=== PATIENT | female | born 1990 | race American Indian/Alaskan Native ===

== ENCOUNTER 2016-10-22 19:31 | Emergency (ER) | payer OTHER ==
[2016-10-22 20:14] VITALS: BP 133/98
[2016-10-22 20:51] LABS: Alanine Aminotransferase 19 units/L (7-56); Albumin 4.6 g/dL (3.9-5); Albumin/Globulin Ratio 1.5 %; Alkaline Phosphatase 54 units/L (35-129); Anion Gap 22 mmol/L; BUN/Creatinine Ratio 8.33; Blood Urea Nitrogen 5 mg/dL (7-17); Carbon Dioxide 21 mmol/L (22-30); Chloride 98.9 mmol/L (98-107); Glucose 124 mg/dL (65-100); Lipase 17 units/L (13-60); Potassium 3.7 mmol/L (3.6-5.0); Sodium 138 mmol/L (137-145); Total Protein 7.7 g/dL (6.3-8.2)
[2016-10-22 20:52] LABS: Bacteria,Urine 2+ /HPF (Negative); Bilirubin,Urine NEG (Negative); Blood,Urine MOD (Negative); Ketones,Urine NEG (Negative); Leukocyte Esterase,Urine TR (Negative); Mucus,Urine 2+ /HPF; Nitrite,Urine POS (Negative); Protein,Urine <15 mg/dL mg/dL (Negative); Urobilinogen,Urine < 2.0 mg/dL (<2.0)
[2016-10-22 20:58] LABS: Basophils % (Auto) 0.6 % (0.0-1.8); Eosinophils % (Auto) 0.4 % (0.0-4.3); Hematocrit 39.4 % (30.3-42.9); Hemoglobin 13.5 gm/dl (10.1-14.3); Mean Corpuscular HGB Conc 34 % (30-34); Mean Corpuscular Volume 76 fl (79-97); Platelet Count 340 K/mm3 (140-440); Red Blood Count 5.21 M/mm3 (3.65-5.03); Red Cell Distribution Width 14.5 % (13.2-15.2); White Blood Count 11.4 K/mm3 (4.5-11.0)
[2016-10-22 20:59] LABS: Mean Corpuscular Hemoglobin 26 pg (28-32)
== END 2016-10-22 21:45 | disposition left against medical advice (07) ==
LOC: ED 19:31
DX: R10.2 Pelvic and perineal pain (principal); R10.30 Lower abdominal pain, unspecified; Z53.21 Procedure and treatment not carried out due to patient leaving prior to being seen by health care provider
CPT/HCPCS: 36415; 80053; 81001; 81025; 83690; 85025

== ENCOUNTER 2017-07-07 19:24 | Emergency (ER) | payer SELFPAY ==
[2017-07-07 20:09] VITALS: BP 146/61
[2017-07-07 20:48] LABS: Basophils % (Auto) 0.3 % (0.0-1.8); Eosinophils # (Auto) 0.2 K/mm3 (0.0-0.4); Eosinophils % (Auto) 1.3 % (0.0-4.3); Hematocrit 37.5 % (30.3-42.9); Hemoglobin 12.2 gm/dl (10.1-14.3); Lymphocytes # (Auto) 4.3 K/mm3 (1.2-5.4); Lymphocytes % (Auto) 35.5 % (13.4-35.0); Mean Corpuscular HGB Conc 33 % (30-34); Mean Corpuscular Volume 76 fl (79-97); Monocytes # (Auto) 0.9 K/mm3 (0.0-0.8); Monocytes % (Auto) 7.4 % (0.0-7.3); Platelet Count 362 K/mm3 (140-440); Red Blood Count 4.91 M/mm3 (3.65-5.03); Red Cell Distribution Width 14.9 % (13.2-15.2)
[2017-07-07 21:00] LABS: Alanine Aminotransferase 27 units/L (7-56); Albumin 4.2 g/dL (3.9-5); BUN/Creatinine Ratio 12; Blood Urea Nitrogen 6 mg/dL (7-17); Calcium 8.6 mg/dL (8.4-10.2); Hemolysis Index 2
[2017-07-07 21:07] LABS: Bacteria,Urine 2+ /HPF (Negative); Bilirubin,Urine NEG (Negative); Blood,Urine MOD (Negative); Color,Urine Yellow (Yellow); Nitrite,Urine NEG (Negative); Protein,Urine <15 mg/dL mg/dL (Negative)
[2017-07-07 21:11] LABS: Mean Corpuscular Hemoglobin 25 pg (28-32)
== END 2017-07-07 22:50 | disposition left against medical advice (07) ==
LOC: ED 19:24
DX: R07.9 Chest pain, unspecified (principal); Z53.21 Procedure and treatment not carried out due to patient leaving prior to being seen by health care provider
CPT/HCPCS: 36415; 80053; 81001; 84702; 85025

== ENCOUNTER 2017-09-28 10:07 | Outpatient (CLI) | payer BC, MEDICAID ==
[2017-09-28 10:36] VITALS: BP 131/76
[2017-09-28 11:13] LABS: Bacteria,Urine 1+ /HPF (Negative); Bilirubin,Urine NEG (Negative); Blood,Urine NEG (Negative); Color,Urine Yellow (Yellow); Mucus,Urine FEW /HPF; Protein,Urine <15 mg/dL mg/dL (Negative)
== END 2017-09-28 11:10 | disposition home or self-care (01) ==
LOC: TRG 10:07
PROVIDERS: ATTEND Obstetrics & Gynecology
DX: O47.02 False labor before 37 completed weeks of gestation, second trimester (principal); Z3A.20 20 weeks gestation of pregnancy
CPT/HCPCS: 59025; 81001

== ENCOUNTER 2018-02-05 17:00 | Inpatient (IN) | payer MEDICAID ==
[2018-02-05 18:28] LABS: Hemoglobin 10.8 gm/dl (10.1-14.3); Mean Corpuscular HGB Conc 34 % (30-34); Mean Corpuscular Hemoglobin 24 pg (28-32); Mean Corpuscular Volume 70 fl (79-97); Platelet Count 274 K/mm3 (140-440); Red Blood Count 4.58 M/mm3 (3.65-5.03); Red Cell Distribution Width 18.6 % (13.2-15.2)
[2018-02-05 18:32] LABS: Bacteria,Urine 3+ /HPF (Negative); Bilirubin,Urine NEG (Negative); Blood,Urine SM (Negative); Color,Urine Yellow (Yellow); Mucus,Urine FEW /HPF
[2018-02-05 18:46] LABS: Alanine Aminotransferase 7 units/L (7-56); Uric Acid 2.8 mg/dL (3.5-7.6)
--- NOTE | 2018-02-05 20:15 | History and Physical Report ---
History of Present Illness Date of examination: 02/05/18 Date of admission: 02/05/18 Chief complaint: sent from the office History of present illness: Pt seen in the office today for routine visit andNST due to GDM on insulin. She was noted to have elevated bps of 150-160s/100s. Pt was seen in triage and had negative PIH labs but had 30 of protein in UA and two BPs that were 140-150/ 80s. Pt admitted for obs and 24 hour urine collection to r/o Pre E and have extended monitor to determine if she has gestational hypertension. Pt now states that contractions are more frequent and uncomfortable. Cx in the office was 2/50/-2. She was advised that if she continues to labor, she would deliver at this time. She was also advised that if 24hr protein is in the pre E range and she continues to have elevated blood pressures she will be induced at 37 weeks for pre E. I also explained to pt and her mother that if her urine protein is normal but her blood pressures remain elevated and reach the sever ranges of 160s/105 or higher she would also be induced for gestational hypertension. Pt is followed by GDM and will be on sliding scale while inhouse. Pt will get sono to check growth at this time as she states the baby was 7lbs at last sono done at 35 weeks. Remote access to my office is not available to me at this time therefore I am not able to confirm this. Plan of care d/w pt and mother. Several minutes were spent at the bedside and all questions were addressed and answered. Past History Past Medical History: other Past Surgical History: no surgical history [facility] History: denies: abnormal PAP smear Family/Genetic History: none Social history: no significant social history, single - Obstetrical History Expected Date of Delivery: 02/27/18 Actual Gestation: 36 Week(s) 6 Day(s) : 3 Para: 1 Hx # Term Pregnancies: 1 (spontaneous labor at 37 wks 8lbs) Number of Living Children: 1 Medications and Allergies Allergies Allergy/AdvReac Type Severity Reaction Status Date / Time No Known Allergies Allergy Verified 02/05/18 17:42 Home Medications Medication Instructions Recorded Confirmed Last Taken Type Insulin NPH Human Isophane 20 units SQ QPM 02/05/18 02/05/18 02/04/18 18:00 History [Humulin N] 1 Insulin NPH Human Isophane 54 units SQ QAM 02/05/18 02/05/18 01/29/18 07:00 History [Humulin N] Insulin Regular, Human [Humulin R] 20 units SQ QPM 02/05/18 02/05/18 02/04/18 17 :00 History 1 Insulin Regular, Human [Humulin R] 26 units SQ QAM 02/05/18 02/05/18 02/05/18 07 :00 History 1 Review of Systems All systems: negative - Vital Signs Vital signs: Vital Signs Pulse BP 99 H 133/74 02/05/18 17:31 02/05/18 17:31 Temp Pulse Resp BP Pulse Ox 97.2 F L 107 H 133/68 02/05/18 18:28 02/05/18 19:01 02/05/18 19:01 - Physical Exam Cardiovascular: Normal S1, Normal S2 Lungs: Positive: Clear to auscultation, Normal air movement Abdomen: Positive: normal appearance, soft, normal bowel sounds. Negative: distention, tenderness Vagina: Positive: normal moisture Deep Tendon Reflex Grade: Normal +2 - Obstetrical FHR: category 1 (occasional variables were noted on nst in office and while pt was in triage) Cervical Dilatation: 2 Cervical Effacement Percentage: 50 station: -2 Results Result Diagrams: 02/05/18 17:00 02/05/18 17:00 Abnormal lab results 02/05/18 02/05/18 02/05/18 Range/Units 17:00 17:00 17:00 MCV 70 L (79-97) fl MCH 24 L (28-32) pg RDW 18.6 H (13.2-15.2) % Creatinine 0.4 L (0.7-1.2) mg/dL Uric Acid 2.8 L (3.5-7.6) mg/dL Lactate Dehydrogenase 223 H (91-180) units/L Urine WBC (Auto) 8.0 H (0.0-6.0) /HPF All other labs normal. Assessment and Plan - Patient Problems (1) 36 weeks gestation of Current Visit: Yes Status: Acute (2) Elevated blood pressure affecting in third trimester, antepartum Current Visit: Yes Status: Acute Plan to address problem: -24 hr urine collection -serial blood pressures -close observation -if bps stay elevated proceed with IOL at 37 wks and d/c urine collection -BP meds if needed -sono for EFW and TONI (3) Gestational diabetes mellitus (GDM) requiring insulin Current Visit: Yes Status: Acute Plan to address problem: -SSI while in house -accuchecks q AC and 2hr pp -GDM diet
[2018-02-05] MEDS ORDERED: AMBIEN PO PRN (20:24)
[2018-02-05] MEDS ORDERED: COLACE PO PRN (20:24)
[2018-02-05] MEDS ORDERED: TYLENOL PO PRN (20:24)
[2018-02-05] MEDS ORDERED: MYLICON PO PRN (20:24)
[2018-02-05] MEDS ORDERED: ZOFRAN IV PRN (20:24)
[2018-02-05] MEDS ORDERED: D50W (25GM) Syringe IV PRN (21:22)
--- NOTE | 2018-02-05 21:35 | Ultrasound Report ---
FINAL REPORT EXAM: US OB FOLLOW UP HISTORY: variable decels, elevated BP TECHNIQUE: Transabdominal sonography of the pelvis. PRIORS: None. FINDINGS: There is a single, live intrauterine in cephalic presentation. heart motion is detected and heart rate is 164 beats per minute. Placenta is located fundal and there is no evidence of previa. Cervical length 3.4 cm. Biometric data obtained and corresponds to an estimated gestational age of 36 weeks 4 days and an ultrasound estimated date of delivery of 01 March 2018 (it should be noted that an examination performed earlier in may yield more accurate dating). survey not performed. Amniotic fluid index is 12.7 cm. EFW: 2989g +/- 248g. AUA: 68%tile. BPD: 9.16 cm HC: 32.3 cm AC: 32.6 cm FL: 7.16 cm Remainder of the uterus and adnexa grossly unremarkable. IMPRESSION: 1. Single, live intrauterine .
[2018-02-06] MEDS ORDERED: HumuLIN R SUB-Q SCH ×2 (00:40→07:30)
[2018-02-06] MEDS ORDERED: SUBLIMAZE IV PRN (09:35)
[2018-02-06] MEDS ORDERED: BRETHINE SUB-Q PRN (09:35)
[2018-02-06] MEDS ORDERED: MINERAL OIL PO PRN (09:35)
--- NOTE | 2018-02-06 09:37 | Progress Note ---
Assessment and Plan - Patient Problems (1) 37 weeks gestation of Current Visit: Yes Status: Acute (2) Gestational hypertension Current Visit: Yes Status: Acute Qualifiers: Trimester: third trimester Qualified Code(s): O13.3 - Gestational [ -induced] hypertension without significant proteinuria, third trimester Plan to address problem: Elevated BP's at M on and in office on thursday, no significant proteinuria(blood on specimen). Will proceed with induction for gestational hypertension. Diagnosis explained, questions answered, she voiced undeerstandiong and agrees with plan of care. (3) Gestational diabetes mellitus (GDM) requiring insulin Current Visit: Yes Status: Acute Subjective - Subjective Date of service: 02/06/18 Principal diagnosis: IUP@37weeks; GHTN; GDM Patient reports: no new complaints Objective - Vital Signs Vital Signs: Vital Signs - 12hr 02/06/18 02/06/18 02/06/18 00:55 02:54 04:54 Temperature Pulse Rate 104 H 100 H 85 Respiratory Rate Blood Pressure 117/57 105/55 128/68 Blood Pressure [Left] O2 Sat by Pulse Oximetry 02/06/18 02/06/18 07:55 08:58 Temperature 96.9 F L Pulse Rate 75 80 Respiratory 20 Rate Blood Pressure 122/62 142/89 Blood Pressure 122/62 [Left] O2 Sat by Pulse 96 Oximetry - Exam Breasts: deferred Cardiovascular: Regular rate Lungs: Normal air movement Abdomen: Present: normal appearance, soft Vulva: both: normal Uterus: Present: fundal height above umbilicus FHR: category 1 Uterine Contraction Monitor Mode: External Cervical Dilatation: 2.5 Cervical Effacement Percentage: 50 station: -2 Uterine Contraction Pattern: Regular Extremities: edema (1+) Deep Tendon Reflex Grade: Normal +2 - Labs Labs: Abnormal Labs 02/05/18 02/05/18 02/05/18 17:00 17:00 17:00 MCV 70 L MCH 24 L RDW 18.6 H Creatinine 0.4 L POC Glucose Uric Acid 2.8 L Lactate Dehydrogenase 223 H Urine WBC (Auto) 8.0 H 02/05/18 02/06/18 23:15 00:17 MCV MCH RDW Creatinine POC Glucose 154 H 164 H Uric Acid Lactate Dehydrogenase Urine WBC (Auto) Laboratory Results - last 24 hr 09/02/05/18 02/05/18 17:00 17:00 17:00 WBC 9.6 RBC 4.58 Hgb 10.8 Hct 32.0 MCV 70 L MCH 24 L MCHC 34 RDW 18.6 H Plt Count 274 Creatinine 0.4 L Estimated GFR > 60 POC Glucose Uric Acid 2.8 L AST 23 ALT 7 Lactate Dehydrogenase 223 H Urine Color Yellow Urine Turbidity Slightly-cloudy Urine pH 6.0 Ur Specific [place] 1.019 Urine Protein 30 mg/dl Urine Glucose (UA) 50 Urine Ketones Tr Urine Blood Sm Urine Nitrite Neg Urine Bilirubin Neg Urine Urobilinogen 2.0 Ur Leukocyte Esterase Neg Urine WBC (Auto) 8.0 H Urine RBC (Auto) 5.0 U Epithel Cells (Auto) 4.0 Urine Bacteria (Auto) 3+ Urine Mucus Few Urine Yeast (Budding) 1+ 02/05/18 02/06/18 02/06/18 23:15 00:17 07:53 WBC RBC Hgb Hct MCV MCH MCHC RDW Plt Count Creatinine Estimated GFR POC Glucose 154 H 164 H 75 Uric Acid AST ALT Lactate Dehydrogenase Urine Color Urine Turbidity Urine pH Ur Specific [place] Urine Protein Urine Glucose (UA) Urine Ketones Urine Blood Urine Nitrite Urine Bilirubin Urine Urobilinogen Ur Leukocyte Esterase Urine WBC (Auto) Urine RBC (Auto) U Epithel Cells (Auto) Urine Bacteria (Auto) Urine Mucus Urine Yeast (Budding)
[2018-02-06] MEDS ORDERED: PITOCin/NS 30 UNIT/500ML 30 UNITS/500 ML BAG IV SCH (10:00)
[2018-02-06] MEDS ORDERED: PITOCin/NS 20 UNIT/1000ML DRIP 20 UNITS/1,000 ML BAG IV SCH ×2 (10:00→23:52)
[2018-02-06] MEDS ORDERED: PRENATAL VITAMIN PO SCH (10:00)
[2018-02-06] MEDS ORDERED: XYLOCAINE 2% INFILTRATI ONE (10:00)
[2018-02-06] MEDS: LACTATED RINGERS 1,000 ML IV SCH ×2 (10:27→18:13)
[2018-02-06 11:00] LABS: Hematocrit 31.1 % (30.3-42.9); Hemoglobin 10.6 gm/dl (10.1-14.3); Mean Corpuscular HGB Conc 34 % (30-34); Platelet Count 251 K/mm3 (140-440); Red Blood Count 4.46 M/mm3 (3.65-5.03); Red Cell Distribution Width 18.4 % (13.2-15.2)
[2018-02-06 11:23] LABS: Mean Corpuscular Hemoglobin 24 pg (28-32); Mean Corpuscular Volume 70 fl (79-97)
--- NOTE | 2018-02-06 17:49 | Progress Note ---
Assessment and Plan Continue induction - Patient Problems (1) 37 weeks gestation of Current Visit: Yes Status: Acute (2) Gestational hypertension Current Visit: Yes Status: Acute Qualifiers: Trimester: third trimester Qualified Code(s): O13.3 - Gestational [ -induced] hypertension without significant proteinuria, third trimester (3) Gestational diabetes mellitus (GDM) requiring insulin Current Visit: Yes Status: Acute Subjective - Subjective Date of service: 02/06/18 Principal diagnosis: IUP@37weeks; GHTN; GDM Patient reports: movement normal, no new complaints, no loss of fluid, no vaginal bleeding Objective - Vital Signs Vital Signs: Vital Signs - 12hr 02/06/18 02/06/18 02/06/18 07:55 08:58 10:27 Temperature 96.9 F L Pulse Rate 75 80 107 H Respiratory 20 Rate Blood Pressure 122/62 142/89 Blood Pressure 122/62 [Left] O2 Sat by Pulse 96 98 Oximetry 02/06/18 02/06/18 02/06/18 10:29 10:31 10:32 Temperature Pulse Rate 105 H 104 H 92 H Respiratory Rate Blood Pressure 135/72 Blood Pressure [Left] O2 Sat by Pulse 99 90 Oximetry 02/06/18 02/06/18 02/06/18 10:36 10:41 10:47 Temperature Pulse Rate 98 H 96 H 100 H Respiratory Rate Blood Pressure Blood Pressure [Left] O2 Sat by Pulse 98 98 97 Oximetry 02/06/18 02/06/18 02/06/18 10:51 10:55 10:56 Temperature Pulse Rate 97 H 102 H 106 H Respiratory Rate Blood Pressure 134/80 Blood Pressure [Left] O2 Sat by Pulse 98 94 Oximetry 02/06/18 02/06/18 02/06/18 10:57 11:02 11:07 Temperature Pulse Rate 99 H 99 H 111 H Respiratory Rate Blood Pressure Blood Pressure [Left] O2 Sat by Pulse 97 98 97 Oximetry 02/06/18 02/06/18 02/06/18 11:12 11:16 11:22 Temperature Pulse Rate 102 H 102 H 100 H Respiratory Rate Blood Pressure Blood Pressure [Left] O2 Sat by Pulse 97 97 98 Oximetry 02/06/18 02/06/18 02/06/18 11:27 11:31 11:37 Temperature Pulse Rate 100 H 101 H 101 H Respiratory Rate Blood Pressure Blood Pressure [Left] O2 Sat by Pulse 98 97 99 Oximetry 02/06/18 02/06/18 02/06/18 11:42 11:47 11:52 Temperature Pulse Rate 101 H 98 H 112 H Respiratory Rate Blood Pressure Blood Pressure [Left] O2 Sat by Pulse 97 98 99 Oximetry 02/06/18 02/06/18 02/06/18 11:57 12:01 12:07 Temperature Pulse Rate 98 H 100 H 100 H Respiratory Rate Blood Pressure Blood Pressure [Left] O2 Sat by Pulse 98 97 98 Oximetry 02/06/18 02/06/18 02/06/18 12:12 12:17 12:18 Temperature Pulse Rate 99 H 95 H 103 H Respiratory Rate Blood Pressure Blood Pressure [Left] O2 Sat by Pulse 96 95 93 Oximetry 02/06/18 02/06/18 02/06/18 12:29 12:30 12:35 Temperature Pulse Rate 80 90 Respiratory Rate Blood Pressure Blood Pressure [Left] O2 Sat by Pulse 44 L 98 97 Oximetry 02/06/18 02/06/18 02/06/18 12:40 12:45 12:48 Temperature Pulse Rate 93 H 98 H 90 Respiratory Rate Blood Pressure Blood Pressure [Left] O2 Sat by Pulse 98 98 88 Oximetry 02/06/18 02/06/18 02/06/18 12:49 12:55 12:56 Temperature Pulse Rate 89 90 90 Respiratory Rate Blood Pressure 129/70 Blood Pressure [Left] O2 Sat by Pulse 97 97 Oximetry 02/06/18 02/06/18 02/06/18 12:59 13:05 13:10 Temperature Pulse Rate 88 91 H 97 H Respiratory Rate Blood Pressure Blood Pressure [Left] O2 Sat by Pulse 97 97 96 Oximetry 02/06/18 02/06/18 02/06/18 13:15 13:20 13:25 Temperature Pulse Rate 95 H 88 92 H Respiratory Rate Blood Pressure Blood Pressure [Left] O2 Sat by Pulse 96 97 98 Oximetry 02/06/18 02/06/18 02/06/18 13:30 13:35 13:40 Temperature Pulse Rate 88 92 H 92 H Respiratory Rate Blood Pressure Blood Pressure [Left] O2 Sat by Pulse 98 97 98 Oximetry 02/06/18 02/06/18 02/06/18 13:45 13:49 13:55 Temperature Pulse Rate 90 90 92 H Respiratory Rate Blood Pressure Blood Pressure [Left] O2 Sat by Pulse 97 96 97 Oximetry 02/06/18 02/06/18 02/06/18 14:00 14:05 14:18 Temperature Pulse Rate 95 H 97 H 89 Respiratory Rate Blood Pressure Blood Pressure [Left] O2 Sat by Pulse 96 97 99 Oximetry 02/06/18 02/06/18 02/06/18 14:23 14:26 14:28 Temperature Pulse Rate 97 H 117 H 99 H Respiratory Rate Blood Pressure Blood Pressure [Left] O2 Sat by Pulse 100 77 L 96 Oximetry 02/06/18 02/06/18 02/06/18 14:33 14:38 14:43 Temperature Pulse Rate 91 H 93 H 97 H Respiratory Rate Blood Pressure Blood Pressure [Left] O2 Sat by Pulse 100 99 98 Oximetry 02/06/18 02/06/18 02/06/18 14:48 14:53 14:56 Temperature Pulse Rate 97 H 96 H 88 Respiratory Rate Blood Pressure 129/64 Blood Pressure [Left] O2 Sat by Pulse 98 98 Oximetry 02/06/18 02/06/18 02/06/18 14:58 15:03 15:08 Temperature Pulse Rate 100 H 98 H 90 Respiratory Rate Blood Pressure Blood Pressure [Left] O2 Sat by Pulse 99 99 99 Oximetry 02/06/18 02/06/18 02/06/18 15:13 15:18 15:23 Temperature Pulse Rate 93 H 95 H 97 H Respiratory Rate Blood Pressure Blood Pressure [Left] O2 Sat by Pulse 99 99 98 Oximetry 02/06/18 02/06/18 02/06/18 15:28 15:30 15:36 Temperature 97.0 F L Pulse Rate 97 H 95 H Respiratory 16 Rate Blood Pressure Blood Pressure [Left] O2 Sat by Pulse 99 0 L Oximetry 02/06/18 02/06/18 02/06/18 15:37 15:41 15:47 Temperature Pulse Rate 89 97 H 94 H Respiratory Rate Blood Pressure Blood Pressure [Left] O2 Sat by Pulse 96 98 97 Oximetry 02/06/18 02/06/18 02/06/18 15:52 15:57 16:00 Temperature Pulse Rate 94 H 101 H 90 Respiratory Rate Blood Pressure Blood Pressure [Left] O2 Sat by Pulse 97 97 92 Oximetry 02/06/18 02/06/18 02/06/18 16:02 16:07 16:12 Temperature Pulse Rate 99 H 101 H 98 H Respiratory Rate Blood Pressure Blood Pressure [Left] O2 Sat by Pulse 98 96 97 Oximetry 02/06/18 02/06/18 02/06/18 16:17 16:22 16:27 Temperature Pulse Rate 105 H 93 H 89 Respiratory Rate Blood Pressure Blood Pressure [Left] O2 Sat by Pulse 99 97 91 Oximetry 02/06/18 02/06/18 02/06/18 16:32 16:37 16:42 Temperature Pulse Rate 99 H 97 H 95 H Respiratory Rate Blood Pressure Blood Pressure [Left] O2 Sat by Pulse 96 97 95 Oximetry 02/06/18 02/06/18 02/06/18 16:47 16:52 16:57 Temperature Pulse Rate 86 91 H 101 H Respiratory Rate Blood Pressure Blood Pressure [Left] O2 Sat by Pulse 97 97 97 Oximetry 02/06/18 02/06/18 02/06/18 17:02 17:04 17:07 Temperature Pulse Rate 103 H 93 H 97 H Respiratory Rate Blood Pressure Blood Pressure [Left] O2 Sat by Pulse 97 94 97 Oximetry 02/06/18 02/06/18 02/06/18 17:12 17:17 17:22 Temperature Pulse Rate 88 96 H 96 H Respiratory Rate Blood Pressure Blood Pressure [Left] O2 Sat by Pulse 96 96 97 Oximetry 02/06/18 02/06/18 02/06/18 17:27 17:32 17:37 Temperature Pulse Rate 109 H 95 H 91 H Respiratory Rate Blood Pressure Blood Pressure [Left] O2 Sat by Pulse 98 98 98 Oximetry 02/06/18 02/06/18 17:38 17:42 Temperature Pulse Rate 85 96 H Respiratory Rate Blood Pressure 137/66 Blood Pressure [Left] O2 Sat by Pulse 97 Oximetry - Exam Breasts: deferred Lungs: Normal air movement Abdomen: Present: normal appearance. Absent: tenderness Vulva: both: normal Uterus: Present: fundal height above umbilicus FHR: category 1 Uterine Contraction Monitor Mode: Internal Cervical Dilatation: 2.5 (AROM copious clear, IUPC placed after verbal consent obtained. ) Cervical Effacement Percentage: 50 station: -2 Uterine Contraction Pattern: Irregular - Labs Labs: Abnormal Labs 02/05/18 02/05/18 02/05/18 17:00 17:00 17:00 MCV 70 L MCH 24 L RDW 18.6 H Creatinine 0.4 L POC Glucose Uric Acid 2.8 L Lactate Dehydrogenase 223 H Urine WBC (Auto) 8.0 H 02/05/18 02/06/18 02/06/18 23:15 00:17 10:38 MCV 70 L MCH 24 L RDW 18.4 H Creatinine POC Glucose 154 H 164 H Uric Acid Lactate Dehydrogenase Urine WBC (Auto) Laboratory Results - last 24 hr 02/05/18 02/05/18 02/05/18 17:00 17:00 17:00 WBC 9.6 RBC 4.58 Hgb 10.8 Hct 32.0 MCV 70 L MCH 24 L MCHC 34 RDW 18.6 H Plt Count 274 Creatinine 0.4 L Estimated GFR > 60 POC Glucose Uric Acid 2.8 L AST 23 ALT 7 Lactate Dehydrogenase 223 H Urine Color Yellow Urine Turbidity Slightly-cloudy Urine pH 6.0 Ur Specific [place] 1.019 Urine Protein 30 mg/dl Urine Glucose (UA) 50 Urine Ketones Tr Urine Blood Sm Urine Nitrite Neg Urine Bilirubin Neg Urine Urobilinogen 2.0 Ur Leukocyte Esterase Neg Urine WBC (Auto) 8.0 H Urine RBC (Auto) 5.0 U Epithel Cells (Auto) 4.0 Urine Bacteria (Auto) 3+ Urine Mucus Few Urine Yeast (Budding) 1+ RPR Blood Type Antibody Screen 02/05/18 02/06/18 02/06/18 23:15 00:17 07:53 WBC RBC Hgb Hct MCV MCH MCHC RDW Plt Count Creatinine Estimated GFR POC Glucose 154 H 164 H 75 Uric Acid AST ALT Lactate Dehydrogenase Urine Color Urine Turbidity Urine pH Ur Specific [place] Urine Protein Urine Glucose (UA) Urine Ketones Urine Blood Urine Nitrite Urine Bilirubin Urine Urobilinogen Ur Leukocyte Esterase Urine WBC (Auto) Urine RBC (Auto) U Epithel Cells (Auto) Urine Bacteria (Auto) Urine Mucus Urine Yeast (Budding) RPR Blood Type Antibody Screen 02/06/18 02/06/18 02/06/18 10:38 10:38 10:38 WBC 8.0 RBC 4.46 Hgb 10.6 Hct 31.1 MCV 70 L MCH 24 L MCHC 34 RDW 18.4 H Plt Count 251 Creatinine Estimated GFR POC Glucose Uric Acid AST ALT Lactate Dehydrogenase Urine Color Urine Turbidity Urine pH Ur Specific [place] Urine Protein Urine Glucose (UA) Urine Ketones Urine Blood Urine Nitrite Urine Bilirubin Urine Urobilinogen Ur Leukocyte Esterase Urine WBC (Auto) Urine RBC (Auto) U Epithel Cells (Auto) Urine Bacteria (Auto) Urine Mucus Urine Yeast (Budding) RPR Nonreactive Blood Type O POSITIVE Antibody Screen Negative
[2018-02-06] MEDS ORDERED: NARCAN 2 MG/2 ML IV PRN (19:53)
[2018-02-06] MEDS ORDERED: fentaNYL-BUPIV 2 MCG/ML-0.125% 200 MCG/100 ML BAG EPIDURAL SCH (20:00)
--- NOTE | 2018-02-06 20:19 | Anesthesia Consultation ---
Anesthesia Consult and Med Hx Date of service: 02/06/18 - Airway Anesthetic Teeth Evaluation: Good ROM Head & Neck: Adequate Mental/Hyoid Distance: Adequate Mallampati Class: Class II Intubation Access Assessment: Probably Good - Pulmonary Exam CTA: Yes - Cardiac Exam Cardiac Exam: RRR - Pre-Operative Health Status ASA Pre-Surgery Classification: ASA2 Proposed Anesthetic Plan: Epidural, Spinal - Pulmonary Hx Smoking: No Hx Asthma: No Hx Respiratory Symptoms: No SOB: No - Cardiovascular System Hx Hypertension: Yes (gHTN; neg pre-eclampsia labs) Hx Heart Attack/AMI: No - Central Nervous System Hx Seizures: No CVA: No Hx Back Pain: No - Endocrine Hx Renal Disease: No Hx Liver Disease: No Hx Insulin Dependent Diabetes: Yes (gDM) Hx Thyroid Disease: No
--- NOTE | 2018-02-06 21:43 | Procedure Note ---
OB Delivery Note - Delivery Date of Delivery: 02/06/18 ( male) [employer] Business Banking Officer: ALBINO PEREZ Estimated blood loss: 200cc - Vaginal Delivery presentation: vertex Delivery position: OP ( presentation, direct OP) Intrapartum events: gestational hypertension, extend. tachycardia (no maternal fever ) Delivery induction: oxytocin Delivery augmentation: rupture of membranes, pitocin Delivery monitor: external FHT, internal uterine Route of delivery: Delivery placenta: spontaneous Delivery cord: nuchal cord (tight Nuchal cord and body cord), 3 umbilical vessels Episiotomy: none Delivery laceration: none Anesthesia: epidural Delivery comments: Male del straight OP- presentation, nucal cord and body cord - somersaulted through. Cord clamped and cut - infant handed off to NICU and [facility]AB[facility]IST d /t tachycardia. Cord blood collected. Placenta del intact and complete. Pit to IVF. no lacerations to repair. EBL 200, 's weight 8#4oz, apgars 8/ 9. - A at 1 minute: 8 at 5 minutes: 9 Infant Gender: Male (8#4oz)
[2018-02-06] MEDS ORDERED: TYLENOL PO PRN (23:52)
[2018-02-06] MEDS ORDERED: TUCKS PAD TP PRN (23:52)
[2018-02-06] MEDS ORDERED: SODIUM CHLORIDE FLUSH SYRINGE 10 ML IV PRN (23:52)
[2018-02-06] MEDS ORDERED: MILK OF MAGNESIA PO PRN (23:52)
[2018-02-06] MEDS ORDERED: DERMOPLAST TP PRN (23:52)
[2018-02-06] MEDS ORDERED: DULCOLAX PR PRN (23:52)
[2018-02-06] MEDS ORDERED: LANSINOH TP PRN (23:52)
[2018-02-06] MEDS ORDERED: BENADRYL PO PRN (23:52)
[2018-02-06] MEDS ORDERED: NORCO 5/325 PO PRN (23:52)
[2018-02-06] MEDS ORDERED: PHENERGAN PO PRN (23:52)
[2018-02-07] MEDS: MOTRIN PO SCH ×4 (01:23→23:17)
[2018-02-07] MEDS ORDERED: PRENATAL VITAMIN PO SCH (10:00)
[2018-02-07] MEDS: FEOSOL PO SCH ×2 (10:26→21:12)
[2018-02-07 10:46] LABS: Hematocrit 30.7 % (30.3-42.9); Hemoglobin 10.3 gm/dl (10.1-14.3)
--- NOTE | 2018-02-07 12:12 | Progress Note ---
Assessment and Plan Patient doing well this morning w/o complaints. b/p's 120-140's/60-80's, H&H 10.3/30.7, fasting glucose 78 this morning. Lochia scant, fundus firm. Anticipate d/c home tomorrow. Continue pathway. - Patient Problems (1) Gestational diabetes mellitus (GDM) requiring insulin Current Visit: Yes Status: Acute (2) Gestational hypertension Current Visit: Yes Status: Acute Qualifiers: Trimester: third trimester Qualified Code(s): O13.3 - Gestational [ -induced] hypertension without significant proteinuria, third trimester (3) (normal spontaneous vaginal delivery) Current Visit: Yes Status: Acute Subjective - Subjective Date of service: 02/07/18 Principal diagnosis: day #1 s/p Patient reports: appetite normal, voiding normally, pain well controlled, ambulating normally, no dizzy ambulation, no nauseated : doing well, bottle feeding Objective - Vital Signs Latest vital signs: Vital Signs Temp Pulse Resp BP BP Pulse Ox 02/07/18 11:56 18 02/07/18 08:28 98.4 F 89 20 120/60 02/07/18 05:36 98.5 F 94 H 18 130/75 99 02/07/18 00:25 99.6 F 87 20 140/84 02/06/18 23:08 88 129/91 02/06/18 22:53 87 132/84 02/06/18 22:38 121 H 122/73 02/06/18 22:23 100 H 132/74 02/06/18 22:08 106 H 131/81 02/06/18 22:00 98.3 F 18 02/06/18 21:54 110 H 133/74 02/06/18 21:38 107 H 133/63 02/06/18 21:30 114 H 129/56 02/06/18 21:07 92 H 78 L 02/06/18 21:05 63 85 02/06/18 21:03 96 H 138/82 02/06/18 21:02 96 H 100 02/06/18 21:00 98.2 F 20 02/06/18 20:58 101 H 87 02/06/18 20:57 91 H 117/75 100 02/06/18 20:53 94 H 118/69 09/15/18 20:52 98 H 100 /15/18 20:47 88 100 /15/18 20:42 91 H 108/59 100 15/18 20:38 89 112/57 15/18 20:37 97 H 100 /15/18 20:33 90 111/56 15/18 20:32 88 100 15/18 20:28 94 H 108/55 15/18 20:27 97 H 100 15/18 20:23 90 105/54 15/18 20:22 98 H 100 15/18 20:21 98 H 105/55 15/18 20:18 90 109/58 15/18 20:17 93 H 100 1518 20:16 93 H 114/64 1518 20:14 93 H 124/70 15/18 20:12 98 H 124/71 100 15/18 20:10 95 H 122/74 1518 20:06 88 116/66 15/18 20:04 100 H 118/64 100 15/18 20:02 97 H 122/66 1518 20:00 98 H 123/71 15/18 19:59 98 H 100 1518 19:58 98 H 119/82 15/18 19:20 97.2 F L 20 18 18:55 88 128/65 15/18 18:52 99 H 95 15/18 18:47 88 97 15/18 18:42 88 96 15/18 18:37 99 H 96 15/18 18:34 96 H 94 15/18 18:32 95 H 97 15/18 18:27 96 H 95 15/18 18:22 95 H 95 15/18 18:17 106 H 97 15/18 18:12 90 97 15/18 18:07 95 H 97 15/18 18:02 85 97 15/18 17:57 86 98 /15/18 17:52 89 98 /15/18 17:47 96 H 98 15/18 17:42 96 H 97 15/18 17:38 85 137/66 09/15/18 17:37 91 H 98 09/15/18 17:32 95 H 98 09/15/18 17:27 109 H 98 /15/18 17:22 96 H 97 09/15/18 17:17 96 H 96 /15/18 17:12 88 96 /15/18 17:07 97 H 97 /15/18 17:04 93 H 94 /15/18 17:02 103 H 97 /15/18 16:57 101 H 97 /15/18 16:52 91 H 97 /15/18 16:47 86 97 /15/18 16:42 95 H 95 /15/18 16:37 97 H 97 /15/18 16:32 99 H 96 /15/18 16:27 89 91 /15/18 16:22 93 H 97 15/18 16:17 105 H 99 15/18 16:12 98 H 97 /15/18 16:07 101 H 96 15/18 16:02 99 H 98 /15/18 16:00 90 92 /15/18 15:57 101 H 97 15/18 15:52 94 H 97 /15/18 15:47 94 H 97 /15/18 15:41 97 H 98 /15/18 15:37 89 96 /15/18 15:36 95 H 0 L 15/18 15:30 97.0 F L 16 15/18 15:28 97 H 99 /15/18 15:23 97 H 98 /15/18 15:18 95 H 99 /15/18 15:13 93 H 99 /15/18 15:08 90 99 /15/18 15:03 98 H 99 15/18 14:58 100 H 99 /15/18 14:56 88 129/64 15/18 14:53 96 H 98 /15/18 14:48 97 H 98 15/18 14:43 97 H 98 /15/18 14:38 93 H 99 /15/18 14:33 91 H 100 /15/18 14:28 99 H 96 15/18 14:26 117 H 77 L 15/18 14:23 97 H 100 15/18 14:18 89 99 09/15/18 14:05 97 H 97 02/06/18 14:00 95 H 96 02/06/18 13:55 92 H 97 02/06/18 13:49 90 96 02/06/18 13:45 90 97 02/06/18 13:40 92 H 98 02/06/18 13:35 92 H 97 02/06/18 13:30 88 98 02/06/18 13:25 92 H 98 02/06/18 13:20 88 97 02/06/18 13:15 95 H 96 02/06/18 13:10 97 H 96 02/06/18 13:05 91 H 97 02/06/18 12:59 88 97 02/06/18 12:56 90 129/70 02/06/18 12:55 90 97 02/06/18 12:49 89 97 02/06/18 12:48 90 88 02/06/18 12:45 98 H 98 02/06/18 12:40 93 H 98 02/06/18 12:35 90 97 02/06/18 12:30 80 98 02/06/18 12:29 44 L 02/06/18 12:18 103 H 93 02/06/18 12:17 95 H 95 02/06/18 12:12 99 H 96 Intake and Output 02/06/18 02/07/18 02/07/18 23:59 07:59 15:59 Intake Total 1029.633 360 Output Total 800 400 Balance 229.633 -40 Intake: IV 1029.633 Lactated Ringers 1,000 ml 970.833 @ 125 mls/hr IV DIRECT ESTUARDO Rx#:[id number] PITOCin/NS 30 UNIT/500ML 58.8 30 units In 500 ml @ 4 mls/hr IV TITR ESTUARDO Rx#: [id number] Intake, Free Water 360 Output: Urine 800 400 Indwelling Catheter 800 Void 400 Other: Total, Output Amount 800 400 Estimated Blood Loss 200 - Exam Breasts: Present: normal Cardiovascular: Present: Regular rate Lungs: Present: Clear to auscultation, Normal air movement Abdomen: Present: normal appearance, soft Vulva: both: normal Uterus: Present: normal, firm, fundal height at umbilicus Extremities: Present: normal - Labs Labs: Abnormal lab results 02/06/18 Range/Units 16:53 POC Glucose 69 L (70-105)
[2018-02-08] MEDS: MOTRIN PO SCH (05:24)
[2018-02-08] MEDS ORDERED: BOOSTRIX IM ONE (06:00)
--- NOTE | 2018-02-08 06:01 | Discharge Summary ---
Providers - Providers Date of Admission: 02/06/18 11:13 Date of discharge: 02/08/18 (pt agrees with d/c) Attending physician: ELMER BERNSTEIN Primary care physician: ELMER BERNSTEIN Hospitalization Reason for admission: induction of labor (GHTN) Delivery: Episiotomy: none Laceration: none Incision: normal Other procedures: none complications: none Discharge diagnosis: IUP at term delivered [place] baby: male Hospital course: uncomplicated vaginal delivery successful IOL for GDM(insulin) and GHTN Pt resting No c/o voiced VSS FF below umb Lochia scant H&H 03/23 stable. BS this AM 62, pt is not symptomatic. Doing well s/p vag delivery P: d/c today with instructions Will get BP check when pt brings NB in for circ in one week. PP care 4 weeks Pt will need 2hr GTT @ 6 weeks PP Condition at discharge: Good Disposition: DC-01 TO HOME OR SELFCARE - Discharge Diagnoses (1) (normal spontaneous vaginal delivery) Status: Acute Comment: RTO 4 weeks PP care Plan - Discharge Medications Prescriptions: Ibuprofen [Motrin 800 MG tab] 800 mg PO Q8HR PRN #30 tablet PRN Reason: Pain Lidocain2.5%/Prilocai2.5% [Emla] 5 gm TP ONCE PRN #1 tube PRN Reason: Pain - Provider Discharge Summary Activity: routine, no sex for 6 weeks, no heavy lifting 4 weeks, no strenuous exercise Diet: routine Instructions: routine Additional instructions: [] Smoking cessation referral if applicable(refer to patient education folder for contact #) [] Refer to [facility] Booklet Call your doctor immediately for: * Fever > 100.5 * Heavy vaginal bleeding ( >1 pad per hour) * Severe persistent headache * Shortness of breath * Reddened, hot, painful area to leg or breast * Drainage or odor from incision. * Keep incision clean and dry at all times and follow doctor's instructions regarding bathing/showering - Follow up plan Follow up: ELMER BERNSTEIN MD [Primary Care Provider] - 7 Days (Congratulations! Please call [facility] office [phone] to schedule your visit in 4 weeks. Your son will need to be scheduled in 1 week for Circumcision. Bring the EMLA cream with you to his visit. Do NOT use at home. You will have a blood pressure check at your son's visit. Call with any headache not relieved with Tylenol, blurred vision, chest pain. You will need a 2hr glucose test at 6 weeks . This is recommended follow up due to being gestational diabetic in . Take medication as prescribed. Call with concerns.)
[2018-02-08 12:13] VITALS: BP 130/74
== END 2018-02-08 11:30 | disposition home or self-care (01) | DRG 775 ==
LOC: TRG 17:00 → LD 17:03 → TRG 02-06 11:11 → LD 02-06 11:13 → OB 02-06 23:52
PROVIDERS: ADMIT Obstetrics & Gynecology; ATTEND Obstetrics & Gynecology
PROC: 10E0XZZ Delivery of Products of Conception, External Approach (ICD-10-PCS; principal; 2018-02-06)
PROC: 3E033VJ Introduction of Other Hormone into Peripheral Vein, Percutaneous Approach (ICD-10-PCS; 2018-02-06)
PROC: 3E0R3BZ Introduction of Anesthetic Agent into Spinal Canal, Percutaneous Approach (ICD-10-PCS; 2018-02-06)
PROC: 00HU33Z Insertion of Infusion Device into Spinal Canal, Percutaneous Approach (ICD-10-PCS; 2018-02-06)
DX: O24.424 Gestational diabetes mellitus in childbirth, insulin controlled (principal); O32.8XX0 Maternal care for other malpresentation of fetus, not applicable or unspecified; O76 Abnormality in fetal heart rate and rhythm complicating labor and delivery; O13.3 Gestational [pregnancy-induced] hypertension without significant proteinuria, third trimester; Z3A.36 36 weeks gestation of pregnancy; Z37.0 Single live birth; O69.1XX0 Labor and delivery complicated by cord around neck, with compression, not applicable or unspecified
CPT/HCPCS: 36415; 59025; 76816; 81001; 82565; 82962; 83615; 84450; 84460; 84550; 85014; 85018; 85027; 86592; 86850; 86900; 86901; 88307; J1815; J2590; J3010; J7120

== ENCOUNTER 2021-03-24 03:03 | Emergency (ER) | payer MEDICAID, OTHER ==
[2021-03-24 03:12] VITALS: BP 139/76
[2021-03-24] MEDS ORDERED: IBUPROFEN 600 MG TAB PO ONE (03:47)
[2021-03-24] MEDS ORDERED: HYDROcodone/ACETAMINOPHEN 5-325 MG TAB PO ONE (03:47)
[2021-03-24] MEDS ORDERED: ONDANSETRON 4 MG ODT TAB PO ONE (03:48)
--- NOTE | 2021-03-24 03:55 | Emergency Department Report ---
ED Fall HPI - General Chief Complaint: Extremity Injury, Lower Stated Complaint: RT LEG PAIN Source: patient Mode of arrival: Wheelchair - History of Present Illness Initial Comments: Patient is a 30-year-old -[place] female with a history of hypertension who presents to the ED with complaint of acute onset persistent severe right knee and right lower leg pain after she slipped on the floor while dancing and fell down landing on the right knee about 1 hour prior to arrival in the ED. Patient states that she had attended a [employer] and had been drinking when she is lost balance while dancing on the floor and landed on her knee. Patient denies head or neck injuries, back pain, chest pain, shortness of breath, dizziness, seizures, nausea and vomiting, hip pain, numbness and tingli ng or weakness of right leg. MD Complaint: fall, other (Right knee and right lower leg pain) -: Sudden, hour(s) (2) Fall From: standing, other (Dancing) When Fall Occurred: 1-3 hours [employer] Fall Witnessed: yes, by family Place Fall Occurred: home Loss of Consciousness: none Prolonged Down Time?: no Symptoms Prior to Fall: none Location: other (Right knee and right lower leg) Location - Extremities: Right: Knee (Pain and swelling), Leg (Pain) Severity: severe Severity scale (0 -10): 8 Quality: sharp, aching Context: tripped/slipped, alcohol use Associated Symptoms: denies, headache. denies: neck pain, numbness, chest paint, shortness of breath, abdominal pain, hematuria, unable to walk, lightheaded, vertigo - Related Data Home Medications Medication Instructions Recorded Confirmed Last Taken Insulin NPH Human Isophane 20 units SQ QPM 02/05/18 02/05/18 02/04/18 18:00 [Humulin N] 1 Insulin NPH Human Isophane 54 units SQ QAM 02/05/18 02/05/18 01/29/18 07:00 [Humulin N] Insulin Regular, Human [Humulin R] 20 units SQ QPM 02/05/18 02/05/18 02/04/18 17:00 1 Insulin Regular, Human [Humulin R] 26 units SQ QAM 02/05/18 02/05/18 02/05/18 0 7:00 1 Previous Rx's Medication Instructions Recorded Last Taken Type Ibuprofen [Motrin 800 MG tab] 800 mg PO Q8HR PRN #30 tablet 02/06/18 Unknown Rx Lidocain2.5%/Prilocai2.5% [Emla] 5 gm TP ONCE PRN #1 tube 02/06/18 Unknown Rx Baclofen 20 mg PO Q12H PRN #24 tablet 03/24/21 Unknown Rx Ibuprofen [Motrin] 800 mg PO Q8HR PRN #30 tablet 03/24/21 Unknown Rx traMADoL [Ultram] 50 mg PO Q6HR PRN #12 tablet 03/24/21 Unknown Rx Allergies Allergy/AdvReac Type Severity Reaction Status Date / Time No Known Allergies Allergy Verified 02/05/18 17:42 ED Review of Systems ROS: Stated complaint: RT LEG PAIN Other details as noted in HPI Constitutional: denies: chills, fever Eyes: denies: eye pain, eye discharge, vision change ENT: denies: ear pain, throat pain Respiratory: denies: cough, shortness of breath, wheezing Cardiovascular: denies: chest pain, palpitations Endocrine: no symptoms reported Gastrointestinal: denies: abdominal pain, nausea, diarrhea Genitourinary: denies: urgency, dysuria, discharge Musculoskeletal: arthralgia (right knee and lower leg pain). denies: back pain, joint swelling Skin: denies: rash, lesions Neurological: denies: headache, weakness, paresthesias Psychiatric: denies: anxiety, depression Hematological/Lymphatic: denies: easy bleeding, easy bruising ED Past Medical Hx - Past Medical History Hx Hypertension: Yes (gHTN; neg pre-eclampsia labs) Hx Heart Attack/AMI: No Hx Diabetes: No Hx Deep Vein Thrombosis: No Hx Liver Disease: No Hx Renal Disease: No Hx Sickle Cell Disease: No Hx Seizures: No Hx Asthma: No Hx HIV: No - Surgical History Past Surgical History?: No - Social History Smoking Status: Never Smoker Substance Use Type: Alcohol - Medications Home Medications: Home Medications Medication Instructions Recorded Confirmed Last Taken Type Insulin NPH Human Isophane 20 units SQ QPM 02/05/18 02/05/18 02/04/18 18:00 History [Humulin N] 1 Insulin NPH Human Isophane 54 units SQ QAM 02/05/18 02/05/18 01/29/18 07:00 History [Humulin N] Insulin Regular, Human [Humulin R] 20 units SQ QPM 02/05/18 02/05/18 02/04/18 17:00 History 1 Insulin Regular, Human [Humulin R] 26 units SQ QAM 02/05/18 02/05/18 02/05/18 07:00 History 1 Ibuprofen [Motrin 800 MG tab] 800 mg PO Q8HR PRN #30 tablet 02/06/18 Unknown Rx Lidocain2.5%/Prilocai2.5% [Emla] 5 gm TP ONCE PRN #1 tube 02/06/18 Unknown Rx Baclofen 20 mg PO Q12H PRN #24 tablet 03/24/21 Unknown Rx Ibuprofen [Motrin] 800 mg PO Q8HR PRN #30 tablet 03/24/21 Unknown Rx traMADoL [Ultram] 50 mg PO Q6HR PRN #12 tablet 03/24/21 Unknown Rx ED Physical Exam - General Limitations: No Limitations General appearance: alert, in no apparent distress - Head Head exam: Present: atraumatic, normocephalic, normal inspection - Eye Eye exam: Present: normal appearance, PERRL, EOMI Pupils: Present: normal accommodation - ENT ENT exam: Present: normal exam, normal orophraynx, mucous membranes moist, TM's normal bilaterally, normal external ear exam - Neck Neck exam: Present: normal inspection, full ROM - Respiratory Respiratory exam: Present: normal lung sounds bilaterally. Absent: respiratory distress, wheezes, rhonchi, stridor, chest wall tenderness, accessory muscle use - Cardiovascular Cardiovascular Exam: Present: regular rate, normal rhythm, normal heart sounds. Absent: systolic murmur, diastolic murmur, rubs, gallop - GI/Abdominal GI/Abdominal exam: Present: soft, normal bowel sounds. Absent: tenderness, guarding, rebound, hyperactive bowel sounds, hypoactive bowel sounds, organomegaly, bruit, pulsatile mass - Extremities Exam Extremities exam: Present: normal inspection, full ROM, tenderness (Palpable right knee and lower leg tenderness), normal capillary refill, joint swelling (right knee ) - Back Exam Back exam: Present: normal inspection, full ROM. Absent: tenderness, CVA tenderness (R), CVA tenderness (L), muscle spasm, paraspinal tenderness, vertebral tenderness - Neurological Exam Neurological exam: Present: alert, oriented X3, CN II-XII intact, normal gait, reflexes normal - Psychiatric Psychiatric exam: Present: normal affect, normal mood - Skin Skin exam: Present: warm, dry, intact, normal color. Absent: rash ED Course Vital Signs 03/24/21 03/24/21 03:11 03:12 Temperature 98.0 F Pulse Rate 95 H Respiratory 18 Rate Blood Pressure 139/76 O2 Sat by Pulse 100 Oximetry ED Medical Decision Making - Radiology Data Radiology results: report reviewed, image reviewed [facility] [address] [place] [address] XRay Report Signed Patient: KELSEY NIELSEN MR# : [id number] : 1990 Acct:[id number] Age/Sex: 30 / F ADM Date: 03/24/21 Loc: ED Attending Dr: Ordering Physician: MONICA FERRER Date of Service: 03/24/21 Procedure(s): XR tibia fibula 2V RT Accession Number(s): [id number] cc: MONICA FERRER Fluoro Time In Minutes: RIGHT KNEE 3 VIEWS RIGHT TIBIA AND FIBULA AP AND LATERAL VIEWS INDICATION: Right calf and right knee pain after fall. COMPARISON: No relevant prior imaging study available. FINDINGS: Right knee: No fracture, dislocation, or joint effusion. No soft tissue swelling. Right tib-fib: No fracture, dislocation, or significant soft tissue swelling. IMPRESSION: 1. No acute findings. Signer Name: James Olivier MD Signed: 03/24/2021 4:30 AM Workstation Name: [id number] Transcribed By: Dictated By: James Olivier MD Electronically Authenticated By: James Olivier MD Signed Date/Time: 03/24/21429 DD/ 8 TD/TT: Print - Medical Decision Making This is a 30-year-old -[place] female with a history of hypertension who presents to the ED with complaint of acute onset persistent severe right knee and right lower leg pain after she slipped on the floor while dancing and fell down landing on the right knee about 1 hour prior to arrival in the ED. Patient states that she had attended a [employer] republic[employer] and had been drinking when she is lost balance while dancing on the floor and landed on her knee. In the ED, patient is alert and oriented x3 and is not in any distress but appears to be in pain. Patient was treated for pain in the ED and right knee x-ray showed no acute fractures or subluxations. Right tib-fib x-ray also showed no acute fractures and subluxations. The patient was therefore discharged home on pain medications and advised to follow-up with her primary care physician in 7 to 10 days for reevaluation. Patient was also advised to return to the ED immediately if symptoms get worse. - Differential Diagnosis Knee contusion; knee sprain; knee fracture; leg muscle strain Critical care attestation.: If time is entered above; I have spent that time in minutes in the direct care of this critically ill patient, excluding procedure time. ED Disposition Clinical Impression: Contusion of right lower leg, initial encounter Sprain of right knee/leg Qualifiers: Encounter type: initial encounter Qualified Code(s): S83.91XA - Sprain of unspecified site of right knee, initial encounter Disposition: HOME / SELF CARE / HOMELESS Is pt being admited?: No Does the pt Need Aspirin: No Condition: Stable Instructions: Knee Sprain, Adult, [id number], Contusion, [id number] Additional Instructions: The x-ray of right knee and right tib-fib showed no acute fractures or subluxations. Therefore your injuries are likely musculoskeletal following the fall injury you suffered. So take pain medication as needed with food, drink plenty of fluids and follow-up with your primary care physician in 7 to 10 days for reevaluation. Return to the ED immediately if symptoms get worse. Prescriptions: Baclofen 20 mg PO Q12H PRN #24 tablet PRN Reason: Muscle Spasm Ibuprofen [Motrin] 800 mg PO Q8HR PRN #30 tablet PRN Reason: Pain , Severe (7-10) traMADoL [Ultram] 50 mg PO Q6HR PRN #12 tablet PRN Reason: Pain Referrals: GEE AGUILAR MD [Staff Physician] - 3-5 Days Forms: Work/School Release Form(ED) Time of Disposition: 05:04 Print Language: KINYARWANDA
--- NOTE | 2021-03-24 04:34 | XRay Report ---
RIGHT KNEE 3 VIEWS RIGHT TIBIA AND FIBULA AP AND LATERAL VIEWS INDICATION: Right calf and right knee pain after fall. COMPARISON: No relevant prior imaging study available. FINDINGS: Right knee: No fracture, dislocation, or joint effusion. No soft tissue swelling. Right tib-fib: No fracture, dislocation, or significant soft tissue swelling. IMPRESSION: 1. No acute findings. Signer Name: James Olivier MD Signed: 03/24/2021 4:30 AM Workstation Name: [id number]
== END 2021-03-24 06:10 | disposition home or self-care (01) ==
LOC: ED 03:03
DX: S83.91XA Sprain of unspecified site of right knee, initial encounter (principal); I10 Essential (primary) hypertension; Z79.4 Long term (current) use of insulin; Z79.899 Other long term (current) drug therapy; S80.11XA Contusion of right lower leg, initial encounter; W01.0XXA Fall on same level from slipping, tripping and stumbling without subsequent striking against object, initial encounter; Y93.89 Activity, other specified; Y92.89 Other specified places as the place of occurrence of the external cause; Y99.8 Other external cause status
CPT/HCPCS: 99283; Q0162